=== PATIENT | female | born 1980 | race Two or more races ===

== ENCOUNTER 2017-08-20 12:34 | Outpatient (CLI) | payer OTHER | END 2017-08-20 12:43 | disposition home or self-care (01) | LOC: MAMO-SONO 12:34 | DX: D25.1 Intramural leiomyoma of uterus (principal); N60.11 Diffuse cystic mastopathy of right breast; N60.12 Diffuse cystic mastopathy of left breast; Z12.31 Encounter for screening mammogram for malignant neoplasm of breast ==

== ENCOUNTER 2017-11-05 15:49 | Emergency (ER) | payer OTHER ==
[~2017-11-05] VITALS: Ht 167.6 cm; Wt 64.4 kg
== END 2017-11-05 22:01 | disposition home or self-care (01) ==
LOC: ER 15:49
DX: L27.1 Localized skin eruption due to drugs and medicaments taken internally (principal); T45.4X5A Adverse effect of iron and its compounds, initial encounter

== ENCOUNTER 2017-12-30 10:43 | Outpatient (CLI) | payer OTHER | END 2017-12-30 10:49 | disposition home or self-care (01) | LOC: RAD 10:43 | DX: D50.8 Other iron deficiency anemias (principal); Z01.818 Encounter for other preprocedural examination ==

== ENCOUNTER 2018-01-06 07:00 | Inpatient (IN) | payer OTHER ==
[~2018-01-06] VITALS: Ht 160 cm; Wt 65.3 kg
[2018-01-06] MEDS ORDERED: LUPRON DEPOT3.75 M1 IM (07:59)
[2018-01-06] MEDS ORDERED: DEPO-PROVE150 MG/1 M IM (07:59)
== END 2018-01-15 10:30 | DRG 743 ==
LOC: O/R 01-13 06:42 → OB/GYN 01-13 06:42 → SURG 01-13 07:00 → OB/GYN 01-13 15:27
PROVIDERS: Specialist
PROC: 0UT70ZZ Resection of Bilateral Fallopian Tubes, Open Approach (ICD-10-PCS; 2018-01-13)
PROC: 0USG0ZZ Reposition Vagina, Open Approach (ICD-10-PCS; 2018-01-13)
PROC: 0US20ZZ Reposition Bilateral Ovaries, Open Approach (ICD-10-PCS; 2018-01-13)
PROC: 0UT90ZZ Resection of Uterus, Open Approach (ICD-10-PCS; principal; 2018-01-13 09:45)
DX: D25.1 Intramural leiomyoma of uterus (principal); D25.2 Subserosal leiomyoma of uterus

== ENCOUNTER 2020-07-07 08:29 | Outpatient (CLI) | payer OTHER ==
[~2020-07-07 08:29] MED LIST: DEPO-PROVE150 MG/1 M IM; LUPRON DEPOT3.75 M1 IM
== END 2020-07-07 08:41 | disposition home or self-care (01) ==
LOC: MAMO-SONO 08:29
PROVIDERS: ATTEND Specialist
DX: N60.12 Diffuse cystic mastopathy of left breast (principal); N60.11 Diffuse cystic mastopathy of right breast

== ENCOUNTER 2020-07-07 09:44 | Outpatient (CLI) | payer OTHER | END 2020-07-07 09:59 | disposition home or self-care (01) | LOC: LAB 09:44 | PROVIDERS: ATTEND Specialist | DX: D50.8 Other iron deficiency anemias (principal); E03.8 Other specified hypothyroidism; E78.3 Hyperchylomicronemia; A64 Unspecified sexually transmitted disease ==

== ENCOUNTER 2021-05-23 12:05 | Outpatient (CLI) | payer OTHER | END 2021-05-23 12:16 | disposition home or self-care (01) | LOC: SONOGRAMA 12:05 | PROVIDERS: ATTEND General Practice | DX: N83.291 Other ovarian cyst, right side (principal); R10.84 Generalized abdominal pain; N20.0 Calculus of kidney ==

== ENCOUNTER 2021-05-23 13:01 | Outpatient (CLI) | payer OTHER | END 2021-05-23 13:11 | disposition home or self-care (01) | LOC: LAB 13:01 | PROVIDERS: ATTEND General Practice | DX: R10.84 Generalized abdominal pain (principal) ==

== ENCOUNTER 2022-01-04 10:51 | Outpatient (CLI) | payer OTHER | END 2022-01-04 11:05 | disposition home or self-care (01) | LOC: SONOGRAMA 10:51 | PROVIDERS: ATTEND Specialist | DX: R10.2 Pelvic and perineal pain (principal); N20.0 Calculus of kidney; N20.2 Calculus of kidney with calculus of ureter ==

== ENCOUNTER 2022-01-23 09:05 | Outpatient (CLI) | payer OTHER | END 2022-01-23 09:06 | disposition home or self-care (01) | LOC: TOM 09:05 | PROVIDERS: ATTEND Urology | DX: N20.0 Calculus of kidney (principal); R10.9 Unspecified abdominal pain ==